=== PATIENT | female | born 1980 | race Hispanic/Latino ===

== ENCOUNTER 2016-11-21 13:13 | Emergency (ER) | payer OTHER ==
[~2016-11-21] VITALS: Ht 157.5 cm; Wt 55.9 kg
[~2016-11-21 13:13] MED LIST: ACET325T51 PO; ALBU8.5H4 INHALATION; DIF100A PO; FLUT16SP NS; HYDR-4003 PO; HYDR-4150 PO; HYDR-656 PO; IBUP-1827 PO; METH750T3 PO; POLY17PO6 PO; [UNRECOGNIZED DRUG - CODE] PO
[2016-11-21 13:17] VITALS: BP 106/74; PULSE 67; RESP 17; O2SAT 100
--- NOTE | 2016-11-21 13:41 | ED.REPORT ---
HPI- Female Date of Service Nov 21, 2016 ED Provider: Colten Giles MD 36 year old female that is RH+ and 12 weeks A2 presents with heavy vaginal bleeding onset 1 hour ago, along with spotting that has occurred since yesterday. is not ectopic and is in the correct place per previous ultrasound performed 4 days ago. Associated symptom of abdominal pain that radiates into her back similar to symptoms occurring during previous miscarriages. She states that the pain is severe enough to make her cry. Patient denies nausea but admits to taking nausea medication Nursing Notes Stated Complaint: BLEEDING, Chief Complaint: Female Abdominal Pain Nursing Notes Reviewed: Yes ([employer] not reconciled) Allergies: Coded Allergies: No Known Allergies (Verified , 11/21/16) Scheduled Polyethylene Glycol 3350 (Miralax) 17 Gm Powd.pack 17 GM PO DAILY Scheduled PRN Acetaminophen (Acetaminophen) 325 Mg Tablet 325 MG PO Q4H PRN PRN For Fever Albuterol HFA (Albuterol HFA) 8.5 Gm Hfa.aer.ad 1-2 PUFF INHALATION Q4H PRN PRN For Shortness of Breath Fluconazole (Diflucan) 100 Mg Tab 100 MG PO DAILY PRN PRN unknown Fluticasone Propionate (Fluticasone Propionate Nasal) 16 Gm [place].susp 2 SPRAY NS BID PRN PRN allergies Hydrocodone-Acetaminophen 5-325 mg (Hydrocodone-Acetaminophen 5-325 mg) 1 Each Tablet 1 TABLET PO Q6H PRN PRN For Pain Hydrocodone/Acetaminophen ([place] 5-325 Tablet) 1 Tablet Tablet 1-2 TABLET PO Q4H PRN PRN For Moderate Pain Ibuprofen (Ibuprofen) 600 Mg Tablet 600 MG PO TID PRN PRN For Pain Levonorgestrel (Levonorgestrel) 1.5 Mg Tablet 1.5 MG PO ONCE PRN PRN unprotected sex Methocarbamol (Methocarbamol) 750 Mg Tablet 1-2 TAB PO Q8H PRN PRN For Spasm hydrOXYzine Hcl (HydrOXYzine Hcl) 25 Mg Tablet 25 MG PO QID PRN PRN For Anxiety General Time Seen by MD: 13:35 Chief Complaint Abdominal pain..., Vaginal bleeding... (Moderate) Hx Obtained From: Patient Arrived By: Walk-in Sudden in Onset?: Yes Onset Occurred: 1 - 4 hours ago Symptom Duration: Since onset Location: : Abdomen lower Quality: Painful Severity: Current: Moderate Severity: Maximum: Moderate Status: Positive - home urine HCG : 8 Para: 5 Abortions: 2 RH Status / Blood Type: Rh Positive Similar Sx Previous: Yes Past Medical History Past Medical History 8 previous pregnancies as well as 2 miscarriages. Cholelithiases. Reports: Asthma Smoking History Never Smoker Ambulatory Status Independent Review of Systems Constitutional: Denies: Chills, Fever GI: Reports: Abdominal pain, Denies: Nausea, Vomiting Female: Reports: , Vaginal bleeding - abnl, Vaginal discharge Complete sys rev & neg: except as marked. Physical Exam Initial Vital Signs Vital Signs (First) Date Time Temp Pulse Resp B/P Pulse Ox O2 Delivery O2 Flow Rate FiO2 11/21/16 13:17 36.8 67 17 106/74 100 Room Air Initial VS: Reviewed, Vital signs normal General/Constitutional: Well-developed, Well-nourished Head / Eyes: Atraumatic, Normocephalic Skin: Warm, Dry, No cyanosis Neurologic: Alert, Oriented, Nonfocal Female Genitourinary: Exam deferred General/Constitutional: Awake, Alert Respiratory / Chest: Breath sounds NL, Breath sounds = bilat, No respiratory distress, No rales, No rhonchi, No wheezing Cardiovascular: Heart rate NL, Regular rhythm, Heart sounds NL, Peripheral circulation NL Abdomen: Soft, Non-tender, No guarding, No rebound Interpretation & Diagnostics Lab Results Interpretation Result Diagram: 11/21/16 1447 Test 11/21/16 14:00 11/21/16 14:47 Urine Color Bloody (YELLOW) Urine Appearance Hazy (CLEAR,HAZY) Urine pH 7.5 (5.0-8.0) Urine Specific [place] 1.015 (1.003-1.035) Urine Protein 300mg/dL (NEG,TRACE) Urine Glucose (UA) 100mg/dL (NEGATIVE) Urine Ketones Tracemg/dL (NEGATIVE) Urine Occult Blood Large (NEGATIVE) Urine Nitrite Positive (NEGATIVE) Urine Bilirubin Negative (NEGATIVE) Urine Urobilinogen 1.0mg/dL (NORMAL) Urine Leukocyte Esterase Small (NEGATIVE) Urine RBC 11-50/hpf (0-2) Urine WBC 0-5/hpf (0-5) Urine Epithelial Cells None/hpf (NONE-MOD) Urine Crystals None seen (NONE SEEN) Urine Bacteria None/hpf (NONE-FEW) Urine Hyaline Casts None/lpf (NONE) Urine Granular Casts None seen (NONE SEEN) Urine Waxy Casts None seen (NONE SEEN) Urine Red Blood Cell Casts None seen (NONE SEEN) Urine White Blood Cell Casts None seen (NONE SEEN) Urine Mucus None seen (None Seen) Urine Trichomonas None seen (NONE SEEN) Urine Yeast None (NONE SEEN) Urinalysis Comment None Urine HCG, Qualitative Positive (Negative) White Blood Count 8.7th/mm3 (3.8-10.1) Red Blood Count 4.21mil/mm3 (3.90-5.20) Hemoglobin 12.9g/dL (12.0-15.6) Hematocrit 37.4% (35.0-46.0) Mean Corpuscular Volume 88.8fL (81-100) Mean Corpuscular Hemoglobin 30.6pg (27.0-35.0) Mean Corpuscular Hemoglobin Concent 34.5% (32.0-37.0) Red Cell Distribution Width 12.7% (12.3-15.4) Platelet Count 204bil/L (150-400) Lab Results Interpretation: CBC normal US Focused OB 12 week IUP Normal HR, cause of bleeding not identified Exam Performed by: [facility] pract Exam Type: Diagnostic Clinical Category: Symptom-based Exam Interpreted by: [facility] pract Indication: Abdominal pain, Vaginal bleeding Re-Eval/Medical Decision Med Decision/Clinical Course This is a 36-year-old 8 presents complaining of vaginal bleeding, she is currently 12 weeks , therefore some spotting yesterday-worsening bleeding over the past hour. Carrington lopez, she has had 2 prior miscarriages requiring D&C and states these presentations are similar. She has had no fevers, dysuria additional complaint. She is hemodynamically normal, with a soft nontender abdomen. She did receive Tylenol the department. She is Rh+ according to blood bank records. An ultrasound was obtained and revealed a 12 week IUP with a normal heart rate, and no definitive or dangerous cause of bleeding identified. She is reassured at this time. If nothing points it a threatened miscarriage, but no markers at this stage of an inevitable one. I contacted her on-call provider for Ida Dillard to facilitate close follow-up and recheck. Return precautions are reviewed. Patient is discharged in improved condition. Source of Hx: Old records Re-Evaluation/Progress : Time of Eval: 14:56 Re-Evaluation/Progress Note: Lab results, plan for discharged and follow-up discussed. Patient understands and agrees with the plan. All questions answered. Consultation : Consulted With: Primary care physician Call Returned at: 14:39 Manager Agricultural: Will see in office Note: Discussed patient case with physician diet consultant for PCP who agrees to see the patient. Differential Diagnosis: Positive: , threatened, Intrauterine , Vaginal bleeding, Negative: , complete, , incomplete, , inevitable, [place] contraction, Ectopic preg, ruptured, Ectopic Counseled Regarding: Diagnosis, Lab results, Need for follow-up, When/why to return to ED Discharge & Departure Impression: Primary Impression: Threatened miscarriage Disposition: Home Discharge Condition All VS Reviewed: Yes Condition: Stable Additional Instructions: 1. The ultrasound revealed normal heart tones and no signs of an inevitable miscarriage are evident. A dangerous cause of bleeding was not identified. 2. Unfortunately there is still a chance of miscarriage to occur. Only time will tell. Take it easy. Pelvic rest-no intercourse until cleared by Dr. Dillard. 3. Tylenol 1000 mg up to 4 times a day for discomfort 4. Call Dr. Dillard's office tomorrow. (I have talked to their office today to facilitate follow-up.) 5. Return if new or worsening symptoms occur. Referrals: Ida Dillard MD (PCP) [facility] Attestation Portions of this note were transcribed by Jaswinder Sumner and Alphonse Roa. I, Dr. Giles personally performed the history, physical exam and medical decision -making; I reviewed and confirmed the accuracy of the information in the transcribed note. Signed by: Jaswinder Sumner and Merlin Mcnulty, 11/21/2016 and 1506. copies to: Ida Dillard MD, Matthew F MD Nov 21, 2016 13:41 Jaswinder Sumner Nov 21, 2016 13:51 ALPHONSE ROA Nov 21, 2016 14:21
[2016-11-21 14:55] LABS: APPEARANCE,URINE HAZY (CLEAR,HAZY); COLOR,URINE BLOODY (YELLOW); PH,URINE 7.5 (5.0-8.0)
[2016-11-21 14:56] LABS: OCCULT BLOOD,URINE LARGE (NEGATIVE)
[2016-11-21 15:01] LABS: Mean Corpuscular Hemoglobin 30.6 pg (27.0-35.0); Mean Corpuscular Volume 88.8 fL (81-100)
--- NOTE | 2016-11-22 05:59 | DRSVH ---
PROCEDURE: US OB<14 WKS INDICATIONS: bleeding, pain 12 wks OUTSIDE/PRIOR DATING DATA: Last menstrual period (LMP): 08/27/16 LMP-based estimated date of delivery (CRISTINA): 06/03/17. First dating scan (date and location): 10/08/16. Estimated date of delivery (CRISTINA) from first dating scan: 06/03/17. TECHNIQUE: Real-time scanning was performed of the fetus and maternal pelvic organs, with image documentation. Endovaginal scanning was also performed to better visualize the fetus and maternal ovaries. COMPARISON: None. FINDINGS: Embryo: Single living intrauterine fetuses present demonstrating heart rate measured 166 beats per minute. No biometry was performed. Comments: . No perigestational bleeds. Maternal organs: Ovaries not well seen sonographically. Limited images through the kidneys demonstr ate no hydronephrosis. IMPRESSION: Limited examination demonstrating single living intrauterine fetus. Dictated by: Roberth Coburn M.D. on 11/21/2016 at 15:05 Approved by: Roberth Coburn M.D. on 11/21/2016 at 15:08
== END 2016-11-21 15:09 | disposition home or self-care (01) ==
LOC: SED 13:13
DX: O20.0 Threatened abortion (principal); Z3A.12 12 weeks gestation of pregnancy; J45.909 Unspecified asthma, uncomplicated